=== PATIENT | male | born 1935 | race African-American/Black ===

== ENCOUNTER 2020-07-24 19:33 | Inpatient (IN) | payer MEDICARE, BC ==
[~2020-07-24] VITALS: Ht 167.6 cm; Wt 122.5 kg
[~2020-07-24 19:33] MED LIST: DOXA4TAB3 PO
[2020-07-24 20:16] LABS: BASOPHILS % 0.6 % (0.0-2.0); EOSINOPHILS % 1.1 % (0.0-5.0); HEMOGLOBIN. 12.5 g/dL (14.0-18.0); LYMPHOCYTES % 10.1 % (20.0-50.0); MEAN CORPUSCULAR HEMOGLOBIN 29.7 pg (28.0-32.0); MEAN CORPUSCULAR VOLUME 88.5 fL (80.0-94.0); MEAN PLATELET VOLUME 10.9 fl (7.4-10.4); MONOCYTES % 8.7 % (2.0-8.0); NEUTROPHILS % 79.5 % (40.0-76.0); PLATELET 154 x1000/uL (130-400); RED BLOOD CELL COUNT 4.19 mill/uL (4.7-6.1); RED CELL DISTRIBUTION WIDTH 14.8 % (11.6-14.6)
[2020-07-24 20:23] LABS: CHLORIDE 109 mEq/L (98-107)
[2020-07-24 20:38] LABS: INR 1.2; PROTHROMBIN TIME 12.3 sec (9.6-11.0)
[2020-07-24] MEDS ORDERED: FUROSEMIDE 20MG/2ML VIAL IVP ONE (20:45)
[2020-07-24] MEDS ORDERED: ASPIRIN 81MG TABLET PO ONE (20:45)
[2020-07-25 09:00] VITALS: BP 129/90
[2020-07-25 09:42] VITALS: BP 129/90
[2020-07-25 11:37] VITALS: BP 132/97
[2020-07-25] MEDS ORDERED: CARV25TA47 PO (12:47)
[2020-07-25] MEDS ORDERED: ATOR40TA70 PO (12:47)
[2020-07-25] MEDS ORDERED: ISOS20TA57 PO (12:47)
[2020-07-25] MEDS ORDERED: HYDR-4134 PO (12:47)
[2020-07-25] MEDS ORDERED: HYDR-4134 MT (12:47)
[2020-07-25] MEDS ORDERED: FURO80TA3 PO (12:47)
[2020-07-25] MEDS ORDERED: APIX2.5T PO (12:49)
[2020-07-25] MEDS ORDERED: ONDANSETRON HCL 4MG/2ML INJ IV PRN (13:00)
[2020-07-25] MEDS ORDERED: ACETAMINOPHEN 325MG TABLET PO PRN (13:00)
[2020-07-25] MEDS: ENOXAPARIN 120MG/0.8ML SYR SUBCUT SCH (14:50)
[2020-07-25 15:33] VITALS: BP 163/109
[2020-07-25] MEDS: FUROSEMIDE 40MG/4ML VIAL IVP SCH (16:42)
[2020-07-25] MEDS: HYDRALAZINE HCL 25MG TABLET PO SCH (16:53)
[2020-07-25] MEDS: DOXAZOSIN MESYLATE 4MG TABLET PO SCH (17:52)
[2020-07-25] MEDS: METHYLPREDNISOLONE SOD SUCC 40 MG/ML VIAL IV SCH (18:08)
[2020-07-25 18:12] VITALS: BP 156/98
[2020-07-25] MEDS: ISOSORBIDE MONONITRATE 20MG TABLET PO SCH (19:10)
[2020-07-25 20:00] VITALS: BP 115/93
[2020-07-25] MEDS: IPRATROPIUM/ALBUTEROL 0.5-3(2.5)MG/3ML NEB HHN SCH (20:45)
[2020-07-25] MEDS: CARVEDILOL 12.5MG TABLET PO SCH (20:49)
[2020-07-25] MEDS ORDERED: LORAZEPAM 2MG/ML CPJ IV PRN (23:45)
[2020-07-26] VITALS: BP 127/91
[2020-07-26] MEDS: IPRATROPIUM/ALBUTEROL 0.5-3(2.5)MG/3ML NEB HHN SCH ×6 (01:11→20:19)
[2020-07-26] MEDS: METHYLPREDNISOLONE SOD SUCC 40 MG/ML VIAL IV SCH ×3 (03:43→17:43)
[2020-07-26 04:00] VITALS: BP 109/80
[2020-07-26 07:28] LABS: HEMATOCRIT. 38.4 % (42.0-52.0); HEMOGLOBIN. 12.4 g/dL (14.0-18.0); MEAN CORPUSCULAR VOLUME 89.4 fL (80.0-94.0); MEAN PLATELET VOLUME 11.3 fl (7.4-10.4); PLATELET 147 x1000/uL (130-400); RED BLOOD CELL COUNT 4.29 mill/uL (4.7-6.1); RED CELL DISTRIBUTION WIDTH 14.8 % (11.6-14.6)
[2020-07-26 08:00] VITALS: BP 121/77
[2020-07-26] MEDS: FUROSEMIDE 40MG/4ML VIAL IVP SCH ×2 (09:19→17:07)
[2020-07-26] MEDS: DOXAZOSIN MESYLATE 4MG TABLET PO SCH (09:20)
[2020-07-26] MEDS: ASPIRIN 81MG TABLET PO SCH (09:20)
[2020-07-26] MEDS: ISOSORBIDE MONONITRATE 20MG TABLET PO SCH (09:20)
[2020-07-26] MEDS: CARVEDILOL 12.5MG TABLET PO SCH ×2 (09:21→21:13)
[2020-07-26] MEDS: HYDRALAZINE HCL 25MG TABLET PO SCH ×3 (10:19→17:10)
[2020-07-26] MEDS: ATORVASTATIN CALCIUM 40MG TABLET PO SCH (10:19)
[2020-07-26 11:14] LABS: PLATELET ESTIMATE NORMAL
[2020-07-26 12:00] VITALS: BP 99/62
[2020-07-26] MEDS: ENOXAPARIN 120MG/0.8ML SYR SUBCUT SCH (15:35)
[2020-07-26 16:00] VITALS: BP 102/65
[2020-07-26] MEDS ORDERED: POTASSIUM CHLORIDE 20MEQ TABLET SR PO NR (17:15)
[2020-07-26] MEDS: METOLAZONE 2.5MG TABLET PO SCH (17:43)
[2020-07-26 18:47] LABS: HEMATOCRIT. 36.2 % (42.0-52.0); HEMOGLOBIN. 11.9 g/dL (14.0-18.0); MEAN CORPUSCULAR HEMOGLOBIN 30.1 pg (28.0-32.0); MEAN CORPUSCULAR VOLUME 91.2 fL (80.0-94.0); RED BLOOD CELL COUNT 3.96 mill/uL (4.7-6.1); RED CELL DISTRIBUTION WIDTH 14.8 % (11.6-14.6)
[2020-07-26 18:51] LABS: CHLORIDE 109 mEq/L (98-107)
[2020-07-26 19:05] LABS: MEAN PLATELET VOLUME 11.9 fl (7.4-10.4); PLATELET 119 x1000/uL (130-400)
[2020-07-26 19:07] LABS: PLATELET ESTIMATE DECREASED
[2020-07-26 20:00] VITALS: BP 117/73
[2020-07-27] VITALS (7 sets, daily range): BP systolic 100–126; BP diastolic 60–98
[2020-07-27] MEDS: IPRATROPIUM/ALBUTEROL 0.5-3(2.5)MG/3ML NEB HHN SCH ×6 (00:17→21:42)
[2020-07-27] MEDS: METHYLPREDNISOLONE SOD SUCC 40 MG/ML VIAL IV SCH ×2 (02:29→09:15)
[2020-07-27 07:52] LABS: PHOSPHORUS 3.2 mg/dL (2.5-4.9)
[2020-07-27 08:03] LABS: HEMATOCRIT. 35.4 % (42.0-52.0); HEMOGLOBIN. 11.8 g/dL (14.0-18.0); MEAN CORPUSCULAR HEMOGLOBIN 29.4 pg (28.0-32.0); MEAN CORPUSCULAR VOLUME 88.1 fL (80.0-94.0); MEAN PLATELET VOLUME 11.1 fl (7.4-10.4); PLATELET 139 x1000/uL (130-400); RED BLOOD CELL COUNT 4.02 mill/uL (4.7-6.1); RED CELL DISTRIBUTION WIDTH 14.4 % (11.6-14.6)
[2020-07-27] MEDS: ATORVASTATIN CALCIUM 40MG TABLET PO SCH (09:14)
[2020-07-27] MEDS: METOLAZONE 2.5MG TABLET PO SCH (09:14)
[2020-07-27] MEDS: ASPIRIN 81MG TABLET PO SCH (09:14)
[2020-07-27] MEDS: HYDRALAZINE HCL 25MG TABLET PO SCH ×3 (09:14→18:17)
[2020-07-27] MEDS: ISOSORBIDE MONONITRATE 20MG TABLET PO SCH (09:15)
[2020-07-27] MEDS: CARVEDILOL 12.5MG TABLET PO SCH ×2 (09:15→21:01)
[2020-07-27] MEDS: DOXAZOSIN MESYLATE 4MG TABLET PO SCH (09:15)
[2020-07-27] MEDS: FUROSEMIDE 40MG/4ML VIAL IVP SCH (09:17)
[2020-07-27 13:18] LABS: PLATELET ESTIMATE NORMAL
[2020-07-27] MEDS: ENOXAPARIN 120MG/0.8ML SYR SUBCUT SCH (14:00)
[2020-07-27 15:51] LABS: BG BASE EXCESS -1.8 mmol/L (-2.0-2.0); BG CARBOXYHEMOGLOBIN 0.3 % (0.5-1.5); BG FRACTION INSPIRED OXYGEN 28; BG HCO3 ACT 22.9 mmol/L (22.0-26.0); BG METHEMOGLOBIN 0.3 % (0.0-1.5); BG OXYHEMOGLOBIN 97.4 % (94.0-97.0); BG PCO2 39.1 mmHg (35.0-45.0); BG PH 7.386 (7.350-7.450); BG PO2 116.7 mmHg (75.0-100.0); BG SAMPLE SITE RIGHT RADIAL; BG TOTAL HEMOGLOBIN 12.7 g/dL (12.0-18.0); BG VENT MODE NASAL CANNULA
[2020-07-27] MEDS ORDERED: LEVOFLOXACIN 500MG PREMIX 100 ML IV SCH (17:00)
[2020-07-28] VITALS (12 sets, daily range): BP systolic 100–150; BP diastolic 60–85
[2020-07-28] MEDS: IPRATROPIUM/ALBUTEROL 0.5-3(2.5)MG/3ML NEB HHN SCH ×4 (02:12→12:20)
[2020-07-28 07:58] LABS: HEMATOCRIT. 34.7 % (42.0-52.0); HEMOGLOBIN. 11.5 g/dL (14.0-18.0); MEAN CORPUSCULAR HEMOGLOBIN 29.4 pg (28.0-32.0); MEAN CORPUSCULAR VOLUME 88.7 fL (80.0-94.0); MEAN PLATELET VOLUME 11.1 fl (7.4-10.4); PLATELET 130 x1000/uL (130-400); RED BLOOD CELL COUNT 3.91 mill/uL (4.7-6.1); RED CELL DISTRIBUTION WIDTH 14.7 % (11.6-14.6)
[2020-07-28 08:24] LABS: PHOSPHORUS 4.1 mg/dL (2.5-4.9)
[2020-07-28] MEDS: ATORVASTATIN CALCIUM 40MG TABLET PO SCH (09:34)
[2020-07-28] MEDS: ISOSORBIDE MONONITRATE 20MG TABLET PO SCH (09:35)
[2020-07-28] MEDS: HYDRALAZINE HCL 25MG TABLET PO SCH ×3 (09:35→17:47)
[2020-07-28] MEDS: PREDNISONE 20MG TABLET PO SCH (09:35)
[2020-07-28] MEDS: DOXAZOSIN MESYLATE 4MG TABLET PO SCH (09:36)
[2020-07-28] MEDS: CARVEDILOL 12.5MG TABLET PO SCH ×2 (09:36→20:34)
[2020-07-28] MEDS: ASPIRIN 81MG TABLET PO SCH (09:37)
[2020-07-28] MEDS: ENOXAPARIN 120MG/0.8ML SYR SUBCUT SCH (16:16)
[2020-07-28] MEDS ORDERED: LEVOFLOXACIN 250MG PREMIX 50 ML IV SCH (17:00)
[2020-07-28 18:24] LABS: PLATELET ESTIMATE NORMAL
[2020-07-28] MEDS: IPRATROPIUM BROMIDE (0.02%) 0.5MG/2.5ML NEB HHN SCH (20:47)
[2020-07-29] VITALS (17 sets, daily range): BP systolic 102–180; BP diastolic 40–94
[2020-07-29] MEDS: IPRATROPIUM BROMIDE (0.02%) 0.5MG/2.5ML NEB HHN SCH ×4 (02:45→20:25)
[2020-07-29 05:45] LABS: HEMOGLOBIN. 11.5 g/dL (14.0-18.0); MEAN CORPUSCULAR HEMOGLOBIN 28.9 pg (28.0-32.0); MEAN CORPUSCULAR VOLUME 88.1 fL (80.0-94.0); MEAN PLATELET VOLUME 11.1 fl (7.4-10.4); PLATELET 121 x1000/uL (130-400); RED BLOOD CELL COUNT 3.97 mill/uL (4.7-6.1); RED CELL DISTRIBUTION WIDTH 14.5 % (11.6-14.6)
[2020-07-29 05:55] LABS: PHOSPHORUS 3.7 mg/dL (2.5-4.9)
[2020-07-29] MEDS: PREDNISONE 20MG TABLET PO SCH (08:41)
[2020-07-29] MEDS: ASPIRIN 81MG TABLET PO SCH (08:41)
[2020-07-29] MEDS: CARVEDILOL 12.5MG TABLET PO SCH ×2 (08:41→21:08)
[2020-07-29] MEDS: ATORVASTATIN CALCIUM 40MG TABLET PO SCH (08:41)
[2020-07-29] MEDS: HYDRALAZINE HCL 25MG TABLET PO SCH ×3 (08:42→17:00)
[2020-07-29] MEDS: ISOSORBIDE MONONITRATE 20MG TABLET PO SCH (08:42)
[2020-07-29] MEDS: DOXAZOSIN MESYLATE 4MG TABLET PO SCH (08:53)
[2020-07-29] MEDS ORDERED: LEVOFLOXACIN 500MG PREMIX 100 ML IV SCH (11:00)
[2020-07-29] MEDS ORDERED: DIGOXIN 500MCG/2ML AMP IV NR ×3 (13:30→20:30)
[2020-07-29] MEDS: ENOXAPARIN 120MG/0.8ML SYR SUBCUT SCH (15:07)
[2020-07-29 21:18] LABS: PLATELET ESTIMATE SLIGHTLY DECREASED
[2020-07-30] VITALS (9 sets, daily range): BP systolic 102–161; BP diastolic 52–100
[2020-07-30] MEDS: IPRATROPIUM BROMIDE (0.02%) 0.5MG/2.5ML NEB HHN SCH ×2 (02:21→20:21)
[2020-07-30 06:24] LABS: HEMATOCRIT. 36.3 % (42.0-52.0); HEMOGLOBIN. 11.8 g/dL (14.0-18.0); MEAN CORPUSCULAR HEMOGLOBIN 29.1 pg (28.0-32.0); MEAN CORPUSCULAR VOLUME 89.3 fL (80.0-94.0); MEAN PLATELET VOLUME 11.6 fl (7.4-10.4); PHOSPHORUS 4.3 mg/dL (2.5-4.9); PLATELET 136 x1000/uL (130-400); RED BLOOD CELL COUNT 4.07 mill/uL (4.7-6.1); RED CELL DISTRIBUTION WIDTH 14.8 % (11.6-14.6)
[2020-07-30 06:33] LABS: PROSTRATE SPECIFIC AG TOTAL 0.35 ng/mL (0.0-4.0)
[2020-07-30 06:41] LABS: DIGOXIN 1.4 ng/mL (0.9-2.0)
[2020-07-30 06:43] LABS: FOLIC ACID (FOLATE) SERUM 15.8 ng/mL (>5.38)
[2020-07-30] MEDS: ASPIRIN 81MG TABLET PO SCH (08:49)
[2020-07-30] MEDS: ATORVASTATIN CALCIUM 40MG TABLET PO SCH (08:50)
[2020-07-30] MEDS: PREDNISONE 20MG TABLET PO SCH (08:50)
[2020-07-30] MEDS: HYDRALAZINE HCL 25MG TABLET PO SCH ×3 (08:51→18:55)
[2020-07-30] MEDS: ISOSORBIDE MONONITRATE 20MG TABLET PO SCH (08:51)
[2020-07-30] MEDS: CARVEDILOL 12.5MG TABLET PO SCH ×2 (08:51→21:18)
[2020-07-30] MEDS: DOXAZOSIN MESYLATE 4MG TABLET PO SCH (10:50)
[2020-07-30] MEDS: LACTULOSE 20G/30ML UDC PO SCH ×2 (13:54→22:15)
[2020-07-30] MEDS: ENOXAPARIN 120MG/0.8ML SYR SUBCUT SCH (14:03)
[2020-07-30 14:24] LABS: PLATELET ESTIMATE NORMAL
[2020-07-30] MEDS ORDERED: DIGOXIN 500MCG/2ML AMP IV NR (20:45)
[2020-07-31] MEDS: IPRATROPIUM BROMIDE (0.02%) 0.5MG/2.5ML NEB HHN SCH ×4 (01:55→20:42)
[2020-07-31] MEDS: LACTULOSE 20G/30ML UDC PO SCH ×3 (06:19→20:51)
[2020-07-31 08:00] VITALS: BP 135/73
[2020-07-31] MEDS: ISOSORBIDE MONONITRATE 20MG TABLET PO SCH (08:14)
[2020-07-31] MEDS: ASPIRIN 81MG TABLET PO SCH (08:15)
[2020-07-31] MEDS: PREDNISONE 20MG TABLET PO SCH (08:15)
[2020-07-31] MEDS: CARVEDILOL 12.5MG TABLET PO SCH ×2 (08:15→20:53)
[2020-07-31] MEDS: HYDRALAZINE HCL 25MG TABLET PO SCH ×3 (08:15→16:54)
[2020-07-31] MEDS: ATORVASTATIN CALCIUM 40MG TABLET PO SCH (08:16)
[2020-07-31 08:58] LABS: HEMATOCRIT. 38.7 % (42.0-52.0); HEMOGLOBIN. 12.6 g/dL (14.0-18.0); MEAN CORPUSCULAR HEMOGLOBIN 29.2 pg (28.0-32.0); MEAN CORPUSCULAR VOLUME 89.4 fL (80.0-94.0); MEAN PLATELET VOLUME 10.4 fl (7.4-10.4); PLATELET 141 x1000/uL (130-400); RED BLOOD CELL COUNT 4.33 mill/uL (4.7-6.1); RED CELL DISTRIBUTION WIDTH 14.8 % (11.6-14.6)
[2020-07-31 09:06] LABS: CHLORIDE 108 mEq/L (98-107)
[2020-07-31 09:12] LABS: PHOSPHORUS 3.9 mg/dL (2.5-4.9)
[2020-07-31 09:16] LABS: T4 FREE 1.62 ng/dL (0.76-1.46)
[2020-07-31 09:22] LABS: ETHANOL BLOOD < 10 mg/dL
[2020-07-31 09:27] LABS: DIGOXIN 1.6 ng/mL (0.9-2.0)
[2020-07-31 10:00] VITALS: BP 123/67
[2020-07-31] MEDS: DOXAZOSIN MESYLATE 4MG TABLET PO SCH (10:05)
[2020-07-31] MEDS ORDERED: LEVOFLOXACIN 500MG TABLET PO SCH (11:00)
[2020-07-31 12:00] VITALS: BP 122/78
[2020-07-31 13:52] LABS: PLATELET ESTIMATE NORMAL
[2020-07-31] MEDS: ENOXAPARIN 120MG/0.8ML SYR SUBCUT SCH (13:57)
[2020-07-31 16:00] VITALS: BP 106/68
[2020-07-31] MEDS: DIGOXIN 125MCG TABLET PO SCH (17:04)
[2020-07-31 20:00] VITALS: BP 99/61
[2020-08-01] VITALS (8 sets, daily range): BP systolic 70–143; BP diastolic 53–104
[2020-08-01] MEDS: IPRATROPIUM BROMIDE (0.02%) 0.5MG/2.5ML NEB HHN SCH ×4 (02:32→21:28)
[2020-08-01] MEDS: LACTULOSE 20G/30ML UDC PO SCH ×3 (04:42→21:13)
[2020-08-01 07:37] LABS: HEMATOCRIT. 36.9 % (42.0-52.0); HEMOGLOBIN. 12.2 g/dL (14.0-18.0); MEAN CORPUSCULAR HEMOGLOBIN 29.6 pg (28.0-32.0); MEAN CORPUSCULAR VOLUME 89.7 fL (80.0-94.0); MEAN PLATELET VOLUME 10.9 fl (7.4-10.4); PLATELET 129 x1000/uL (130-400); RED BLOOD CELL COUNT 4.12 mill/uL (4.7-6.1); RED CELL DISTRIBUTION WIDTH 14.7 % (11.6-14.6)
[2020-08-01 08:21] LABS: PHOSPHORUS 3.2 mg/dL (2.5-4.9)
[2020-08-01] MEDS: ASPIRIN 81MG TABLET PO SCH (09:42)
[2020-08-01] MEDS: ATORVASTATIN CALCIUM 40MG TABLET PO SCH (09:42)
[2020-08-01] MEDS: PREDNISONE 20MG TABLET PO SCH (09:43)
[2020-08-01] MEDS: CARVEDILOL 12.5MG TABLET PO SCH ×2 (09:43→21:13)
[2020-08-01] MEDS: HYDRALAZINE HCL 25MG TABLET PO SCH ×3 (09:43→17:00)
[2020-08-01] MEDS: DOXAZOSIN MESYLATE 4MG TABLET PO SCH (09:43)
[2020-08-01] MEDS: ISOSORBIDE MONONITRATE 20MG TABLET PO SCH (10:24)
[2020-08-01] MEDS: ENOXAPARIN 120MG/0.8ML SYR SUBCUT SCH (15:15)
[2020-08-01 16:34] LABS: PLATELET ESTIMATE SLIGHTLY DECREASED
[2020-08-02] VITALS: BP 129/89
[2020-08-02] MEDS: IPRATROPIUM BROMIDE (0.02%) 0.5MG/2.5ML NEB HHN SCH ×4 (01:50→20:10)
[2020-08-02] MEDS: LACTULOSE 20G/30ML UDC PO SCH ×3 (05:43→20:34)
[2020-08-02 06:05] LABS: HEMATOCRIT. 36.7 % (42.0-52.0); HEMOGLOBIN. 11.9 g/dL (14.0-18.0); MEAN CORPUSCULAR HEMOGLOBIN 29.4 pg (28.0-32.0); MEAN CORPUSCULAR VOLUME 90.4 fL (80.0-94.0); MEAN PLATELET VOLUME 11.1 fl (7.4-10.4); PLATELET 131 x1000/uL (130-400); RED BLOOD CELL COUNT 4.06 mill/uL (4.7-6.1); RED CELL DISTRIBUTION WIDTH 14.7 % (11.6-14.6)
[2020-08-02 06:07] LABS: PHOSPHORUS 3.3 mg/dL (2.5-4.9)
[2020-08-02 08:00] VITALS: BP 112/68
[2020-08-02] MEDS: ASPIRIN 81MG TABLET PO SCH (08:58)
[2020-08-02] MEDS: ATORVASTATIN CALCIUM 40MG TABLET PO SCH (08:58)
[2020-08-02] MEDS: PREDNISONE 20MG TABLET PO SCH (08:59)
[2020-08-02] MEDS ORDERED: ENOXAPARIN 120MG/0.8ML SYR SUBCUT SCH (09:00)
[2020-08-02] MEDS: ISOSORBIDE MONONITRATE 20MG TABLET PO SCH (09:00)
[2020-08-02] MEDS: CARVEDILOL 12.5MG TABLET PO SCH ×2 (09:00→20:33)
[2020-08-02] MEDS: HYDRALAZINE HCL 25MG TABLET PO SCH ×3 (09:00→17:00)
[2020-08-02] MEDS: DOXAZOSIN MESYLATE 4MG TABLET PO SCH (09:00)
[2020-08-02 10:24] LABS: PLATELET ESTIMATE NORMAL
[2020-08-02 12:00] VITALS: BP 108/49
[2020-08-02] MEDS ORDERED: DIGO-26 PO (14:16)
[2020-08-02] MEDS ORDERED: MED4 MT (14:16)
[2020-08-02] MEDS ORDERED: ASPI-1160 PO (14:16)
[2020-08-02] MEDS ORDERED: FURO80TA3 PO (14:17)
[2020-08-02 16:00] VITALS: BP 107/49
[2020-08-02] MEDS ORDERED: FLUTICASONE/VILANTEROL 200-25 BLST.W.DEV ORI SCH (16:45)
[2020-08-02 17:10] LABS: 25-HYDROXY VITAMIN D3 16 ng/mL (.)
[2020-08-02] MEDS: DIGOXIN 125MCG TABLET PO SCH (18:39)
[2020-08-02 20:00] VITALS: BP 99/59
[2020-08-02] MEDS: AMIODARONE HCL 200 MG TABLET PO SCH (20:34)
[2020-08-03] VITALS: BP 139/72
[2020-08-03] MEDS: IPRATROPIUM BROMIDE (0.02%) 0.5MG/2.5ML NEB HHN SCH ×3 (01:50→13:50)
[2020-08-03 04:00] VITALS: BP 95/67
[2020-08-03 04:20] LABS: BARBITURATE SCREEN Negative ug/mL (Cutoff:0.1); BENZODIAZEPINE SCREEN Negative ng/mL (Cutoff:20); OPIATES SCREEN Negative ng/mL (Cutoff:5); PHENCYCLIDINE SCREEN Negative ng/mL (Cutoff:8)
[2020-08-03] MEDS: LACTULOSE 20G/30ML UDC PO SCH ×2 (05:20→13:24)
[2020-08-03 05:41] LABS: PHOSPHORUS 2.8 mg/dL (2.5-4.9)
[2020-08-03 06:33] LABS: HEMATOCRIT. 38.9 % (42.0-52.0); HEMOGLOBIN. 12.5 g/dL (14.0-18.0); MEAN CORPUSCULAR HEMOGLOBIN 28.7 pg (28.0-32.0); MEAN CORPUSCULAR VOLUME 89.5 fL (80.0-94.0); MEAN PLATELET VOLUME 10.5 fl (7.4-10.4); PLATELET 143 x1000/uL (130-400); RED BLOOD CELL COUNT 4.35 mill/uL (4.7-6.1); RED CELL DISTRIBUTION WIDTH 15.1 % (11.6-14.6)
[2020-08-03 08:00] VITALS: BP 131/89
[2020-08-03] MEDS: CARVEDILOL 12.5MG TABLET PO SCH (08:07)
[2020-08-03] MEDS: ISOSORBIDE MONONITRATE 20MG TABLET PO SCH (08:07)
[2020-08-03] MEDS: HYDRALAZINE HCL 25MG TABLET PO SCH ×3 (08:07→17:51)
[2020-08-03] MEDS: DOXAZOSIN MESYLATE 4MG TABLET PO SCH (08:07)
[2020-08-03] MEDS: ASPIRIN 81MG TABLET PO SCH (08:07)
[2020-08-03] MEDS: ATORVASTATIN CALCIUM 40MG TABLET PO SCH (08:09)
[2020-08-03] MEDS ORDERED: TETRACAINE/BENZOCAINE/BUTAMBEN 20 GM SPRAY MM ONE (08:21)
[2020-08-03] MEDS ORDERED: PREDNISONE 20MG TABLET PO SCH (09:00)
[2020-08-03] MEDS ORDERED: FLUTICASONE/VILANTEROL 200-25 BLST.W.DEV ORI SCH (09:00)
[2020-08-03] MEDS ORDERED: ENOXAPARIN 120MG/0.8ML SYR SUBCUT SCH (09:00)
[2020-08-03] MEDS ORDERED: LIDOCAINE HCL 2% JELLY 5ML ONE (09:02)
[2020-08-03] MEDS ORDERED: MIDAZOLAM HCL 2 MG/2 ML VIAL ONE ×2 (09:03→09:39)
[2020-08-03] MEDS ORDERED: FENTANYL CITRATE/PF 50MCG/ML 2ML VIAL ONE (09:04)
[2020-08-03] MEDS: AMIODARONE HCL 200 MG TABLET PO SCH (10:57)
[2020-08-03 12:00] VITALS: BP 134/60
[2020-08-03 16:00] VITALS: BP 119/64
[2020-08-03] MEDS ORDERED: AMI2 PO (16:22)
[2020-08-03 17:39] VITALS: BP 128/49
[2020-08-03 23:56] LABS: PLATELET ESTIMATE NORMAL
== END 2020-08-03 18:39 | disposition home health service (06) | DRG 291 ==
LOC: ER 19:33 → 6WST 21:35 → EDBEDREQ 21:40 → EDBEDREQTM 21:40 → ENRESERV 07-25 07:05 → 5EST 07-27 18:38
PROVIDERS: ADMIT Internal Medicine; ATTEND Internal Medicine
PROC: 4A10X4Z Monitoring of Central Nervous Electrical Activity, External Approach (ICD-10-PCS; principal; 2020-08-01)
PROC: 5A2204Z Restoration of Cardiac Rhythm, Single (ICD-10-PCS; 2020-08-03)
DX: I13.0 Hypertensive heart and chronic kidney disease with heart failure and stage 1 through stage 4 chronic kidney disease, or unspecified chronic kidney disease (principal); J96.91 Respiratory failure, unspecified with hypoxia; G92 Toxic encephalopathy; I50.43 Acute on chronic combined systolic (congestive) and diastolic (congestive) heart failure; J18.9 Pneumonia, unspecified organism; N17.9 Acute kidney failure, unspecified; Z68.41 Body mass index [BMI] 40.0-44.9, adult; I48.19 Other persistent atrial fibrillation; I42.9 Cardiomyopathy, unspecified; E66.01 Morbid (severe) obesity due to excess calories; I89.0 Lymphedema, not elsewhere classified; E87.8 Other disorders of electrolyte and fluid balance, not elsewhere classified; D64.9 Anemia, unspecified; N40.0 Benign prostatic hyperplasia without lower urinary tract symptoms; N18.30 Chronic kidney disease, stage 3 unspecified; D69.6 Thrombocytopenia, unspecified; F17.200 Nicotine dependence, unspecified, uncomplicated; Z20.822 Contact with and (suspected) exposure to COVID-19; I48.0 Paroxysmal atrial fibrillation; I73.9 Peripheral vascular disease, unspecified; R53.81 Other malaise; I87.8 Other specified disorders of veins; R13.10 Dysphagia, unspecified; Z79.899 Other long term (current) drug therapy; Z82.49 Family history of ischemic heart disease and other diseases of the circulatory system; Z86.73 Personal history of transient ischemic attack (TIA), and cerebral infarction without residual deficits; Z90.79 Acquired absence of other genital organ(s); Z83.6 Family history of other diseases of the respiratory system; Z71.3 Dietary counseling and surveillance
CPT/HCPCS: 36415; 36600; 70551; 71045; 71250; 76770; 80048; 80053; 80061; 80162; 80307; 80320; 82140; 82306; 82375; 82550; 82607; 82746; 82805; 83036; 83735; 83880; 84100; 84153; 84439; 84443; 84481; 84484; 85025; 85379; 87426; 92523; 92610; 92960; 93005; 93306; 93312; 93923; 93970; 94640; 97110; 97116; 97162; 97166; 97530; 97535; 99285; J1160; J1650; J1940; J1956; J2060; J2250; J2920; J3010; J7040; J7512; G0103; G0480